=== PATIENT | female | born 1980 | race Two or more races ===

== ENCOUNTER 2022-06-18 07:42 | Inpatient (IN) ==
[2022-06-18] MEDS ORDERED: OXYTOCIN 30 UNITS/500 ML BAG IV PRN ×2 (08:55→16:27)
[2022-06-18] MEDS ORDERED: INSULIN REGULAR 250 UNITS in SODIUM CHLORIDE 0.9% 247.5 ML IV PRN (08:55)
[2022-06-18] MEDS ORDERED: DEXTROSE 5% 1,000 ML IV PRN (08:55)
[2022-06-18] MEDS ORDERED: LIDOCAINE 1% LOCAL 20 ML VIAL INFIL PRN (08:55)
[2022-06-18] MEDS ORDERED: DEXTROSE 50% 50 ML SYRINGE IV PRN (08:55)
[2022-06-18] MEDS ORDERED: SODIUM CHLORIDE 0.9% 1000ML 1,000 ML IV PRN (08:55)
--- NOTE | 2022-06-18 09:04 | History & Physical Report ---
Date of Service June 18, 2022 Assessment & Plan (1) Elective induction of labor planned: Plan: 41 y/o [id number] female at 39+ here for IOL. GBS neg, RI, Rh pos. c/b 1. AMA 2. GDM on insulin 3. Low lying placenta --> resolved FHT: Cat I Admission and Anticipated Discharge Date Admission Date: June 18, 2022 History of Present Illness Chief Complaint: IOL Primary Care Provider: Vilma Hull PA-C 41 y/o [id number] female at 39+ here for IOL. GBS neg, RI, Rh pos. c/b 1. AMA 2. GDM on insulin 3. Low lying placenta --> resolved No STD Hx Last pap 2018 Comment from clinic note 06/17/2022: Reviewed concerns of Jehovah Witness with regards to refusal of blood products. They do not have a living will or legal document stating to this, however she is firm that she would refuse direct blood products, RBC, platelets, FFP. Likely would accept Albumin. Discussed that the risk of transfusion is not zero with induction and that if a C/S is required that more blood loss would be expected. The refusal of blood p roducts could mean the loss of life, although rare, it is sometimes required in life saving situations Note at this stage she verbally is stating that she really does not want blood products I reviewed with her nurse manager strategic development in labor and delivery and with Dr. Kinsey on-call for cervical Caceres tonight the will go over the formal paperwork of refusal of products and potential implications Allergies Allergy/AdvReac Type Severity Reaction Status Date / Time No Known Allergies Allergy Verified 06/17/22 20:03 Home Medications Medication Instructions Recorded Confirmed Type prenat.vits,camilla,[id number] 1 tab PO DAILY 11/22/21 06/17/22 History insulin syringe-needle U-100 0.5 #100 ea 02/01/22 06/17/22 Rx mL 30 gauge x 1/2" (BD Insulin Syringe Ultra-Fine) insulin NPH isoph U-100 human 100 50 unit (0.5 mL) subcut QPM #20 mL 06/04/22 06/17/22 Rx unit/mL subcutaneous suspension (Novolin N NPH U-100 Insulin isophane) Patient History Surgical History History of laparoscopy S/P dilation and curettage Family History (Updated 11/22/21 @ 17:20 by Carmen Rudd) Mother Diabetes Heart disease Father Diabetes Heart disease Brother Testicular cancer Social History Smoking Status: Never smoker Second Hand Exposure: No; Do You Dip or Chew Tobacco: No; Tobacco Cessation Education Requested by Patient: No Hx Alcohol Use: No Hx Substance Use: No Preferred Language: Uzbek Communication Ability: Effective Robot Technician Required: No Beliefs That Will Affect Care: Denominational marital status: marital status details: Quinn (55) [phone] Current Living Situation: Spouse Current Living Situation Comment: lives with spouse and mother in law, 2 dogs. current occupational status: unemployed Other Information That Helps Us Care for You: No Feels Safe at Home: Yes Safety Concerns: Feels Safe At This Time Physical Exam Constitutional: WD/WN, vitals as above Respiratory: no increased work of breathing Cardiovascular: clinically well perfused Psychiatric: A+Ox3, euthymic affect Genitourinary: OB Exam Monitor Tracing: + external FHT monitor used and + category I (baseline 135-140s, no decels, moderate variability) gravid abdomen Results & Data ([facility]) Vital Signs (Past 12 Hours) Vital Signs Temp Pulse Resp BP 06/18/22 08:44 18 06/18/22 08:44 37.0 C 18 06/18/22 08:31 97 H 118/79 Resident Activity Tracking Resident Involvement: Resident Care Provided Care Provided: OB Delivery
[2022-06-18 09:22] LABS: Hematocrit (blood only) 33.2 % (34.1-44.9); Hemoglobin 11.2 g/dl (12.0-16.0); Mean Corpuscular Hemoglobin 30.9 pg (25.0-34.0); Mean Corpuscular Hgb Conc 33.7 g/dL (32.0-36.0); Mean Corpuscular Volume 91.7 fL (80.0-100.0); Mean Platelet Volume 10.3 fL (9.4-12.3); Platelet Count 207 K/uL (130-400); RDW Coefficient of Variation 13.2 % (11.5-14.5); Red Blood Count 3.62 M/uL (3.93-5.22); White Blood Count 13.13 K/ul (4.8-10.8)
--- NOTE | 2022-06-18 09:55 | Obstetrical Progress Note ---
Date of Service June 18, 2022 Assessment & Plan Admission and Anticipated Discharge Date Admission Date: June 18, 2022 Subjective Continue our conversation from the office where we spent considerable time discussing her situation the patient was given the blood transfusion consent last night by Dr. Kinsey she did look at over carefully she has signed that she refuses blood products. This includes platelets red blood cells fresh frozen plasma and cryoprecipitate. I specifically asked the patient regarding albumin the patient says albumin would be okay I explained that for some people who are Jehovah's Witnesses that albumin is declined she understands this and what excepted she also would except other synthetic volume expanders I discussed carefully along with her nurse at the bedside but the potential risks of refusing blood transfusion and blood products are including potential while this is unlikely blood loss does occur at both vaginal delivery and if that was required we discussed the rates of blood transfusion and how blood is carefully screened for infectious diseases. I signed the consent along with the patient I told her we would respect her autonomy but that I had concerns about the potential harm to her if blood was truly needed and refused. Her partner was part of these conversations as well. Specifically that with gestational diabetes advanced maternal age high presenting part with an unfavorable cervix does somewhat increase the risk of section which has a higher blood loss I still think the prudent option would be to try to induce labor all of these discussions are shared with the patient. The cervix is checked the Caceres is still in place the cervix is still at most 1 cm we will await for Caceres to ripen further and then start Pitocin estimated weight 7 to 8 pounds COVID status negative records reviewed Results & Data ([facility]) Vital Signs (Past 12 Hours) Vital Signs Temp Pulse Resp BP 06/18/22 08:44 18 06/18/22 08:44 98.6 F 18 06/18/22 08:31 97 H 118/79 PG Care Time/CCT Total # of Minutes Spent Total Time Spent with Patient: Total time spent is greater than 50% in coordination of care (as documented) at patient's floor/unit and/or counseling patient: Coding Level of Care Code None
--- NOTE | 2022-06-18 10:52 | Obstetrical Progress Note ---
Date of Service June 18, 2022 Assessment & Plan Admission and Anticipated Discharge Date Admission Date: June 18, 2022 Subjective Due to high-volume census of labor and delivery I have not started Pitocin yet we will do this when we have available nursing and remedies for this. Results & Data ([facility]) Vital Signs (Past 12 Hours) Vital Signs Temp Pulse Resp BP 06/18/22 08:44 18 06/18/22 08:44 98.6 F 18 06/18/22 08:31 97 H 118/79 PG Care Time/CCT Total # of Minutes Spent Total Time Spent with Patient: Total time spent is greater than 50% in coordination of care (as documented) at patient's floor/unit and/or counseling patient: Coding Level of Care Code None
--- NOTE | 2022-06-18 14:45 | Obstetrical Progress Note ---
Date of Service June 18, 2022 Assessment & Plan Admission and Anticipated Discharge Date Admission Date: June 18, 2022 Subjective Due to exceptionally high service volume and dizziness and acuity I have not been able to start her Pitocin yet the patient is very hungry I will let her eat and then we will start Pitocin soon after that. Results & Data ([facility]) Vital Signs (Past 12 Hours) Vital Signs Temp Pulse Resp BP 06/18/22 12:47 98.8 F 91 H 17 139/82 06/18/22 08:44 18 06/18/22 08:44 98.6 F 18 06/18/22 08:31 97 H 118/79 PG Care Time/CCT Total # of Minutes Spent Total Time Spent with Patient: Total time spent is greater than 50% in coordination of care (as documented) at patient's floor/unit and/or counseling patient: Coding Level of Care Code None
[2022-06-18] MEDS: LACTATED RINGER'S 1,000 ML IV PRN ×2 (16:39→22:57)
[2022-06-18] MEDS ORDERED: SODIUM CHLORIDE 0.9% INJ 10 ML VIAL ONE (22:28)
[2022-06-18] MEDS ORDERED: ePHEDrine sulfate 50 MG/ML AMP ONE (22:28)
[2022-06-18] MEDS ORDERED: fentaNYL citrate 100 MCG/2 ML VIAL ONE (22:28)
[2022-06-18] MEDS ORDERED: BUPIVACAINE 0.25% 30 ML VIAL ONE (22:29)
[2022-06-18] MEDS ORDERED: fentaNYL 2MCG/ML ROPIVACAINE 1.25MG/ML 100 ML BAG EPI ONE (22:29)
[2022-06-18] MEDS ORDERED: LIDOCAINE 2%/EPINEPHRINE 1:200,000 20 ML SDV ONE (22:29)
--- NOTE | 2022-06-18 22:37 | Anesthesiology Consultation ---
Date of Service June 18, 2022 Assessment & Plan (1) Encounter for pre-operative examination: Chart Review Chart Review: Acceptable Risk for Labor Epidural Consults Requested none ASA ASA2 Proposed Anesthesia Anesthesia Type: Labor Epidural Risk / Benefits Reviewed With: PT / POA / Parent / Guardian, Accepts Plan and Informed Consent Obtained History Height/Weight Height: 5 ft 3 in Weight: 84.368 kg Allergies Allergy/AdvReac Type Severity Reaction Status Date / Time No Known Allergies Allergy Verified 06/17/22 20:03 Medications Home Medications Medication Instructions Recorded Confirmed Last Taken prenat.vits,camilla,[id number] 1 tab PO DAILY 11/22/21 06/17/22 06/17/22 08:00 insulin syringe-needle U-100 0.5 #100 ea 02/01/22 06/17/22 Unknown mL 30 gauge x 1/2" (BD Insulin Syringe Ultra-Fine) insulin NPH isoph U-100 human 100 50 unit (0.5 mL) subcut QPM #20 mL 06/04/22 06/17/22 06/16/22 20:00 unit/mL subcutaneous suspension (Novolin N NPH U-100 Insulin isophane) Active Medications Generic Name Dose Route Start Last Admin Trade Name Freq PRN Reason Stop Dose Admin Lactated Ringer's 1,000 mls @ 125 mls/hr 06/18/22 08:55 06/18/22 19:01 Lr IV 06/20/22 08:54 125 mls/hr .Q8H PRN Infusion L&D Protocol Protocol Oxytocin 30 units in 500 mls @ 10 mls/hr 06/18/22 16:27 06/18/22 21:00 Pitocin IV 06/20/22 16:26 0.6 units/hr .Q24H PRN 10 mls/hr Labor Induction/Augmentation Titration Protocol 0.6 UNITS/HR Exercise / Class Metabolic Activity II 4-5 Yardwork/Stairs/Walk up hill Past Family History Family History Mother Diabetes Heart disease Father Diabetes Heart disease Brother Testicular cancer Past Surgical History Surgical History History of laparoscopy S/P dilation and curettage Past Anesthesia History No Hx of Anesthesia Complications and No Family Hx of Anesthesia Complications History of PONV No Hx of PONV and No Hx of Motion Sickness Social History Smoking Status: Never smoker Do You Dip or Chew Tobacco: No Hx Alcohol Use: No Hx Substance Use: No substance use type: does not use Physical Exam Vital Signs Last Vital Signs Temp 98.2 F 06/18/22 19:13 Pulse 89 06/18/22 22:00 Resp 18 06/18/22 19:13 BP 119/74 06/18/22 22:00 ENMT Mouth: no dentition abnormality Thyromental Distance: > or= 3.5 Finger Breadths Mallampati Class: II Neck normal visual inspection Respiratory normal respiratory effort Auscultation: lungs clear to auscultation bilaterally Cardiovascular Rate/Rhythm: regular rate and regular rhythm Testing Laboratory Results 06/18/22 08:59 06/18/22 06/18/22 06/18/22 21:59 19:42 17:48 POC Glucose 102 H 92 107 H 06/18/22 06/18/22 15:26 12:46 POC Glucose 103 H 79
[2022-06-18] MEDS ORDERED: fentaNYL 2MCG/ML ROPIVACAINE 1.25MG/ML 100 ML BAG EPI PRN (22:58)
[2022-06-18] MEDS ORDERED: ePHEDrine sulfate 50 MG/ML AMP IV PRN (22:58)
[2022-06-18] MEDS ORDERED: NALBUPHINE HCL INJ 10 MG/ML AMP IV PRN (22:58)
[2022-06-18] MEDS ORDERED: NALOXONE HCL 1 MG in SODIUM CHLORIDE 0.9% 1000ML 1,000 ML IV PRN (22:58)
[2022-06-18] MEDS ORDERED: diphenhydrAMINE 50 MG/ML VIAL IV PRN (22:58)
[2022-06-18] MEDS ORDERED: ONDANSETRON INJ 2 MG/ML 2 ML VIAL IV PRN (22:58)
[2022-06-18] MEDS ORDERED: NALOXONE HCL 0.4 MG/1 ML VIAL/CARP IV PRN (22:58)
[2022-06-19] MEDS: LACTATED RINGER'S 1,000 ML IV PRN ×2 (03:36→12:20)
--- NOTE | 2022-06-19 06:52 | Labor Progress Brief Note ---
Date of Service June 19, 2022 Update we were unable to fully start Pitocin until last evening due to busyness and high census on labor and delivery her cervical Caceres did fall out. She was assessed and found to be 3 cm station is high risk for tract the heart rate is category 1 and has remained category 1 at all times. Around midnight there was an increase in bleeding she was assessed and checked at that time category tracing was 1 the bleeding resolved I was unsure whether this was from cervical change she was checked her and she was 3-4 there is no significant bleeding noted at this stage. There was no evidence of abruption in the heart rate tracing or contraction pattern patient felt well with no pain should be noted she does have an epidural. Pitocin was withheld to ensure no further bleeding once this was fully resolved Pitocin was restarted contraction pattern is spaced at approximately 6:30 AM I reassessed her she is 3-4 attempted artificial rupture of membranes there is no big gush of fluid but no significant increase in bleeding. Continue Pitocin induction with artificial rupture membranes expect further cervical change she is not in fully active labor yet and with a category 1 tracing we will continue to actively induce Assessment & Plan Admission and Anticipated Discharge Date Admission Date: June 18, 2022 Results & Data ([facility]) Vital Signs (Past 12 Hours) Vital Signs Temp Pulse Resp BP Pulse Ox 06/18/22 19:13 98.2 F 18 06/19/22 06:39 112 H 100 06/19/22 06:36 100 H 106/66 06/19/22 06:34 101 H 98 06/19/22 06:29 90 97 06/19/22 06:24 99 H 99 06/19/22 06:21 90 119/71 06/19/22 06:19 93 H 100 06/19/22 06:14 80 98 06/19/22 06:09 89 98 06/19/22 06:07 96 H 117/65 06/19/22 06:04 95 H 98 06/19/22 05:59 96 H 100 06/19/22 05:54 115 H 100 06/19/22 05:51 106 H 113/58 L 06/19/22 05:49 115 H 100 06/19/22 05:44 106 H 100 06/19/22 05:39 110 H 100 06/19/22 05:36 105 H 106/57 L 06/19/22 05:34 111 H 100 06/19/22 05:29 111 H 100 06/19/22 05:24 104 H 99 06/19/22 05:21 101 H 100/68 06/19/22 05:19 101 H 100 06/19/22 05:14 100 H 100 06/19/22 05:09 104 H 99 06/19/22 05:06 96 H 100/62 06/19/22 05:04 101 H 100 06/19/22 04:59 103 H 100 06/19/22 04:54 109 H 99 06/19/22 04:52 85 96/53 L 06/19/22 04:49 94 H 99 06/19/22 04:44 91 H 98 06/19/22 04:39 92 H 98 06/19/22 04:37 97 H 106/57 L 06/19/22 04:34 86 98 06/19/22 04:29 84 98 06/19/22 04:24 89 99 06/19/22 04:21 95 H 94/53 L 06/19/22 04:19 83 97 06/19/22 04:14 90 98 06/19/22 04:09 93 H 98 06/19/22 04:06 95 H 100/51 L 06/19/22 04:04 92 H 98 06/19/22 03:59 95 H 99 06/19/22 03:54 94 H 99 06/19/22 03:49 98 06/19/22 03:49 96 H 06/19/22 03:49 84 105/54 L 06/19/22 03:44 94 H 100 06/19/22 03:39 87 117/69 100 06/19/22 03:34 84 100 06/19/22 03:29 98 H 97 06/19/22 03:28 106 H 110/59 L 06/19/22 03:24 83 98 06/19/22 03:19 84 98 06/19/22 03:18 92 H 105/58 L 06/19/22 03:14 93 H 98 06/19/22 03:09 97 H 99 06/19/22 03:08 84 98/55 L 06/19/22 03:04 109 H 100 06/19/22 02:59 92 H 98 06/19/22 02:58 96 H 100/56 L 06/19/22 02:54 81 99 06/19/22 02:49 99 06/19/22 02:49 106 H 06/19/22 02:49 90 105/67 06/19/22 02:44 90 99 06/19/22 02:39 86 98 06/19/22 02:38 81 96/55 L 06/19/22 02:34 88 98 06/19/22 02:29 97 H 100 06/19/22 02:28 100 H 99/56 L 06/19/22 02:24 93 H 99 06/19/22 02:19 98 06/19/22 02:19 84 06/19/22 02:19 88 104/62 06/19/22 02:14 79 98 06/19/22 02:09 95 H 100 06/19/22 02:08 96 H 102/68 06/19/22 02:04 81 100 06/19/22 01:59 100 06/19/22 01:59 85 06/19/22 01:59 92 H 108/72 06/19/22 01:54 76 99 06/19/22 01:49 99 06/19/22 01:49 90 06/19/22 01:49 78 104/64 06/19/22 01:44 88 99 06/19/22 01:39 100 H 100 06/19/22 01:38 92 H 96/60 L 06/19/22 01:34 82 98 06/19/22 01:29 77 98 06/19/22 01:30 81 102/62 06/19/22 01:24 82 98 06/19/22 01:19 86 98 06/19/22 01:18 79 94/55 L 06/19/22 01:14 91 H 99 06/19/22 01:09 96 H 100 06/19/22 01:08 83 109/66 06/19/22 01:04 90 99 06/19/22 00:59 92 H 98 06/19/22 00:58 98.4 F 85 18 105/64 06/19/22 00:54 82 100 06/19/22 00:49 86 98 06/19/22 00:44 81 98 06/19/22 00:39 94 H 100 06/19/22 00:40 92 H 98/61 L 06/19/22 00:34 91 H 99 06/19/22 00:29 92 H 97 06/19/22 00:26 91 H 104/65 06/19/22 00:24 104 H 99 06/19/22 00:19 97 H 98 06/19/22 00:14 85 97 06/19/22 00:12 111 H 107/63 06/19/22 00:09 66 98 06/19/22 00:04 88 97 06/19/22 00:02 74 87 L 06/18/22 23:59 77 99 06/18/22 23:56 81 155/99 H 06/18/22 23:54 48 L 100 06/18/22 23:53 65 87 L 06/18/22 23:49 96 H 100 06/18/22 23:44 99 H 99 06/18/22 23:40 86 119/72 06/18/22 23:39 88 99 06/18/22 23:34 107 H 100 06/18/22 23:29 92 H 99 06/18/22 23:24 101 H 99 06/18/22 23:25 100 H 115/67 06/18/22 23:19 104 H 99 06/18/22 23:05 18 06/18/22 23:05 18 06/18/22 23:10 20 06/18/22 23:10 20 06/18/22 23:14 100 H 100 06/18/22 23:09 106 H 110/63 100 06/18/22 23:06 100 H 109/62 06/18/22 23:04 104 H 99 06/18/22 23:03 95 H 117/64 06/18/22 22:59 100 H 100 06/18/22 23:00 100 H 18 121/67 06/18/22 22:58 101 H 122/72 06/18/22 22:56 100 H 123/71 06/18/22 22:54 115 H 100 06/18/22 22:53 99 H 115/69 06/18/22 22:49 101 H 100 06/18/22 22:44 110 H 100 06/18/22 22:39 110 H 100 06/18/22 22:34 107 H 94 06/18/22 22:00 89 119/74 06/18/22 19:05 98.2 F 91 H 18 130/75 Coding Level of Care Code None
--- NOTE | 2022-06-19 09:39 | Labor Progress Brief Note ---
Date of Service June 19, 2022 Subjective some cramping with epidural, better with button Assessment & Plan (1) Insulin controlled gestational diabetes mellitus (GDM) during : (2) Elective induction of labor planned: Plan 41 yo at 39 2/7 wga presented for IOL yesterday for A2GDM, ama >40 VSS Fetus cat 1 Labor - pit restarted at 6am this AM and AROM at that time. On my exam, I think slight progress from documented exam earlier this AM. Discussed will need to continue increasing pit until 10cm and pushing, discussed potential time it may take as this is first baby, age, GDM. Pt aware and desires to continue at this time GBS neg epidural in place Mandaen - pt is accepting of plasma derived fractions (albumin, immune globulins) an dclotting factors but not whole blood or its components and would prefer over transfusion of blood or whole blood products Admission and Anticipated Discharge Date Admission Date: June 18, 2022 Physical Exam Genitourinary: Manual OB Exam: + cervical dilation (3-4), + cervical e ffacement 70% and + station -2 OB Exam Monitor Tracing: + external FHT monitor used, + external uterine monitor used (q3-4) and + category I (140/mod/+accel/-decel) Results & Data ([facility]) Vital Signs (Past 12 Hours) Vital Signs Temp Pulse Resp BP Pulse Ox 06/19/22 09:34 90 100 06/19/22 09:29 92 H 100 06/19/22 09:24 108 H 100 06/19/22 09:21 83 120/69 06/19/22 09:19 102 H 100 06/19/22 09:14 94 H 99 06/19/22 09:09 80 100 06/19/22 09:07 82 117/67 06/19/22 09:04 86 99 06/19/22 08:59 87 100 06/19/22 08:54 105 H 100 06/19/22 08:51 111 H 110/70 06/19/22 08:49 93 H 100 06/19/22 08:44 102 H 100 06/19/22 08:39 90 100 06/19/22 08:36 106 H 119/72 06/19/22 08:34 98 H 100 06/19/22 08:29 103 H 100 06/19/22 08:24 103 H 99 06/19/22 08:21 93 H 117/63 06/19/22 08:19 116 H 99 06/19/22 08:14 96 H 99 06/19/22 08:09 98 H 100 06/19/22 08:07 98.6 F 85 17 105/59 L 06/19/22 08:04 104 H 100 06/19/22 07:59 98 H 100 06/19/22 07:54 97 H 100 06/19/22 07:51 96 H 117/72 06/19/22 07:49 97 H 100 06/19/22 07:44 99 H 100 06/19/22 07:39 98 H 100 06/19/22 07:37 95 H 128/78 06/19/22 07:34 96 H 100 06/19/22 07:29 100 H 99 06/19/22 07:24 93 H 99 06/19/22 07:21 89 124/77 06/19/22 07:19 89 100 06/19/22 07:14 94 H 100 06/19/22 07:09 87 100 06/19/22 07:06 89 125/73 06/19/22 07:04 101 H 99 06/19/22 06:59 101 H 100 06/19/22 06:54 97 H 100 06/19/22 06:52 98.4 F 88 18 127/75 06/19/22 06:49 87 100 06/19/22 06:44 94 H 100 06/19/22 06:39 112 H 100 06/19/22 06:36 100 H 106/66 06/19/22 06:34 101 H 98 06/19/22 06:29 90 97 06/19/22 06:24 99 H 99 06/19/22 06:21 90 119/71 06/19/22 06:19 93 H 100 06/19/22 06:14 80 98 06/19/22 06:09 89 98 06/19/22 06:07 96 H 117/65 06/19/22 06:04 95 H 98 06/19/22 05:59 96 H 100 06/19/22 05:54 115 H 100 06/19/22 05:51 106 H 113/58 L 06/19/22 05:49 115 H 100 06/19/22 05:44 106 H 100 06/19/22 05:39 110 H 100 06/19/22 05:36 105 H 106/57 L 06/19/22 05:34 111 H 100 06/19/22 05:29 111 H 100 06/19/22 05:24 104 H 99 06/19/22 05:21 101 H 100/68 06/19/22 05:19 101 H 100 06/19/22 05:14 100 H 100 06/19/22 05:09 104 H 99 06/19/22 05:06 96 H 100/62 06/19/22 05:04 101 H 100 06/19/22 04:59 103 H 100 06/19/22 04:54 109 H 99 06/19/22 04:52 85 96/53 L 06/19/22 04:49 94 H 99 06/19/22 04:44 91 H 98 06/19/22 04:39 92 H 98 06/19/22 04:37 97 H 106/57 L 06/19/22 04:34 86 98 06/19/22 04:29 84 98 06/19/22 04:24 89 99 06/19/22 04:21 95 H 94/53 L 06/19/22 04:19 83 97 06/19/22 04:14 90 98 06/19/22 04:09 93 H 98 06/19/22 04:06 95 H 100/51 L 06/19/22 04:04 92 H 98 06/19/22 03:59 95 H 99 06/19/22 03:54 94 H 99 06/19/22 03:49 98 06/19/22 03:49 96 H 06/19/22 03:49 84 105/54 L 06/19/22 03:44 94 H 100 06/19/22 03:39 87 117/69 100 06/19/22 03:34 84 100 06/19/22 03:29 98 H 97 06/19/22 03:28 106 H 110/59 L 06/19/22 03:24 83 98 06/19/22 03:19 84 98 06/19/22 03:18 92 H 105/58 L 06/19/22 03:14 93 H 98 06/19/22 03:09 97 H 99 06/19/22 03:08 84 98/55 L 06/19/22 03:04 109 H 100 06/19/22 02:59 92 H 98 06/19/22 02:58 96 H 100/56 L 06/19/22 02:54 81 99 06/19/22 02:49 99 06/19/22 02:49 106 H 06/19/22 02:49 90 105/67 06/19/22 02:44 90 99 06/19/22 02:39 86 98 06/19/22 02:38 81 96/55 L 06/19/22 02:34 88 98 06/19/22 02:29 97 H 100 06/19/22 02:28 100 H 99/56 L 06/19/22 02:24 93 H 99 06/19/22 02:19 98 06/19/22 02:19 84 06/19/22 02:19 88 104/62 06/19/22 02:14 79 98 06/19/22 02:09 95 H 100 06/19/22 02:08 96 H 102/68 06/19/22 02:04 81 100 06/19/22 01:59 100 06/19/22 01:59 85 06/19/22 01:59 92 H 108/72 06/19/22 01:54 76 99 06/19/22 01:49 99 06/19/22 01:49 90 06/19/22 01:49 78 104/64 06/19/22 01:44 88 99 06/19/22 01:39 100 H 100 06/19/22 01:38 92 H 96/60 L 06/19/22 01:34 82 98 06/19/22 01:29 77 98 06/19/22 01:30 81 102/62 06/19/22 01:24 82 98 06/19/22 01:19 86 98 06/19/22 01:18 79 94/55 L 06/19/22 01:14 91 H 99 06/19/22 01:09 96 H 100 06/19/22 01:08 83 109/66 06/19/22 01:04 90 99 06/19/22 00:59 92 H 98 06/19/22 00:58 98.4 F 85 18 105/64 06/19/22 00:54 82 100 06/19/22 00:49 86 98 06/19/22 00:44 81 98 06/19/22 00:39 94 H 100 06/19/22 00:40 92 H 98/61 L 06/19/22 00:34 91 H 99 06/19/22 00:29 92 H 97 06/19/22 00:26 91 H 104/65 06/19/22 00:24 104 H 99 06/19/22 00:19 97 H 98 06/19/22 00:14 85 97 06/19/22 00:12 111 H 107/63 06/19/22 00:09 66 98 06/19/22 00:04 88 97 06/19/22 00:02 74 87 L 06/18/22 23:59 77 99 06/18/22 23:56 81 155/99 H 06/18/22 23:54 48 L 100 06/18/22 23:53 65 87 L 06/18/22 23:49 96 H 100 06/18/22 23:44 99 H 99 06/18/22 23:40 86 119/72 06/18/22 23:39 88 99 06/18/22 23:34 107 H 100 06/18/22 23:29 92 H 99 06/18/22 23:24 101 H 99 06/18/22 23:25 100 H 115/67 06/18/22 23:19 104 H 99 06/18/22 23:05 18 06/18/22 23:05 18 06/18/22 23:10 20 06/18/22 23:10 20 06/18/22 23:14 100 H 100 06/18/22 23:09 106 H 110/63 100 06/18/22 23:06 100 H 109/62 06/18/22 23:04 104 H 99 06/18/22 23:03 95 H 117/64 06/18/22 22:59 100 H 100 06/18/22 23:00 100 H 18 121/67 06/18/22 22:58 101 H 122/72 06/18/22 22:56 100 H 123/71 06/18/22 22:54 115 H 100 06/18/22 22:53 99 H 115/69 06/18/22 22:49 101 H 100 06/18/22 22:44 110 H 100 06/18/22 22:39 110 H 100 06/18/22 22:34 107 H 94 06/18/22 22:00 89 119/74 Coding Level of Care Code None Diagnoses Insulin controlled gestational diabetes mellitus (GDM) during O24.414 Elective induction of labor planned
[2022-06-19] MEDS ORDERED: NURSING L&D Epidural Breakthrough Pain Update ONE (10:38)
[2022-06-19] MEDS ORDERED: fentaNYL citrate 100 MCG/2 ML VIAL ONE (11:19)
[2022-06-19] MEDS ORDERED: BUPIVACAINE 0.25% 30 ML VIAL ONE (11:20)
--- NOTE | 2022-06-19 11:43 | Labor Progress Brief Note ---
Date of Service June 19, 2022 Subjective comfortable after redose Assessment & Plan (1) Insulin controlled gestational diabetes mellitus (GDM) during : (2) Elective induction of labor planned: Plan 41 yo at 39 2/7 wga presented for IOL yesterday for A2GDM, ama >40 VSS Fetus cat 1 Labor - good progres from last exam, pt more comfortable after redose. Will continue peanut balling and recheck in an hour GBS neg epidural in place Gnosticism - pt is accepting of plasma derived fractions (albumin, immune globulins) an dclotting factors but not whole blood or its components and would prefer over transfusion of blood or whole blood products Admission and Anticipated Discharge Date Admission Date: June 18, 2022 Physical Exam Genitourinary: Manual OB Exam: + cervical dilation (9.5), + cervical effacement 90% and + station + 1 OB Exam Monitor Tracing: + external FHT monitor used, + external uterine monitor used (q3-4) and + category I (120/mod/+accel/+ early decels) Results & Data ([facility]) Vital Signs (Past 12 Hours) Vital Signs Temp Pulse Resp BP Pulse Ox 06/19/22 11:35 130 H 100 06/19/22 11:33 116 H 126/84 06/19/22 11:31 114 H 130/70 06/19/22 11:30 117 H 100 06/19/22 11:29 123 H 130/85 06/19/22 11:27 113 H 132/86 06/19/22 11:25 118 H 136/88 100 06/19/22 11:23 113 H 131/88 06/19/22 11:21 120 H 128/87 06/19/22 11:20 120 H 100 06/19/22 11:15 132 H 100 06/19/22 11:10 125 H 100 06/19/22 11:06 114 H 117/66 06/19/22 11:05 112 H 100 06/19/22 11:00 121 H 100 06/19/22 10:55 87 100 06/19/22 10:51 100 H 113/61 06/19/22 10:50 90 100 06/19/22 10:45 88 100 06/19/22 10:40 104 H 100 06/19/22 10:37 88 120/58 L 06/19/22 10:35 106 H 100 06/19/22 10:30 90 99 06/19/22 10:25 90 100 06/19/22 10:21 91 H 123/58 L 06/19/22 10:20 91 H 100 06/19/22 10:15 90 100 06/19/22 10:10 96 H 100 06/19/22 10:07 105 H 122/57 L 06/19/22 10:05 102 H 100 06/19/22 09:59 105 H 100 06/19/22 10:00 100 H 84 L 06/19/22 09:54 110 H 100 06/19/22 09:51 90 134/73 06/19/22 09:49 105 H 100 06/19/22 09:50 103 H 88 L 06/19/22 09:44 93 H 100 06/19/22 09:39 104 H 100 06/19/22 09:37 95 H 131/74 06/19/22 09:34 90 100 06/19/22 09:29 92 H 100 06/19/22 09:24 108 H 100 06/19/22 09:21 83 120/69 06/19/22 09:19 102 H 100 06/19/22 09:14 94 H 99 06/19/22 09:09 80 100 06/19/22 09:07 98.6 F 82 16 117/67 06/19/22 09:04 86 99 06/19/22 08:59 87 100 06/19/22 08:54 105 H 100 06/19/22 08:51 111 H 110/70 06/19/22 08:49 93 H 100 06/19/22 08:44 102 H 100 06/19/22 08:39 90 100 06/19/22 08:36 106 H 119/72 06/19/22 08:34 98 H 100 06/19/22 08:29 103 H 100 06/19/22 08:24 103 H 99 06/19/22 08:21 93 H 117/63 06/19/22 08:19 116 H 99 06/19/22 08:14 96 H 99 06/19/22 08:09 98 H 100 06/19/22 08:07 98.6 F 85 17 105/59 L 06/19/22 08:04 104 H 100 06/19/22 07:59 98 H 100 06/19/22 07:54 97 H 100 06/19/22 07:51 96 H 117/72 06/19/22 07:49 97 H 100 06/19/22 07:44 99 H 100 06/19/22 07:39 98 H 100 06/19/22 07:37 95 H 128/78 06/19/22 07:34 96 H 100 06/19/22 07:29 100 H 99 06/19/22 07:24 93 H 99 06/19/22 07:21 89 124/77 06/19/22 07:19 89 100 06/19/22 07:14 94 H 100 06/19/22 07:09 87 100 06/19/22 07:06 89 125/73 06/19/22 07:04 101 H 99 06/19/22 06:59 101 H 100 06/19/22 06:54 97 H 100 06/19/22 06:52 98.4 F 88 18 127/75 06/19/22 06:49 87 100 06/19/22 06:44 94 H 100 06/19/22 06:39 112 H 100 06/19/22 06:36 100 H 106/66 06/19/22 06:34 101 H 98 06/19/22 06:29 90 97 06/19/22 06:24 99 H 99 06/19/22 06:21 90 119/71 06/19/22 06:19 93 H 100 06/19/22 06:14 80 98 06/19/22 06:09 89 98 06/19/22 06:07 96 H 117/65 06/19/22 06:04 95 H 98 06/19/22 05:59 96 H 100 06/19/22 05:54 115 H 100 06/19/22 05:51 106 H 113/58 L 06/19/22 05:49 115 H 100 06/19/22 05:44 106 H 100 06/19/22 05:39 110 H 100 06/19/22 05:36 105 H 106/57 L 06/19/22 05:34 111 H 100 06/19/22 05:29 111 H 100 06/19/22 05:24 104 H 99 06/19/22 05:21 101 H 100/68 06/19/22 05:19 101 H 100 06/19/22 05:14 100 H 100 06/19/22 05:09 104 H 99 06/19/22 05:06 96 H 100/62 06/19/22 05:04 101 H 100 06/19/22 04:59 103 H 100 06/19/22 04:54 109 H 99 06/19/22 04:52 85 96/53 L 06/19/22 04:49 94 H 99 06/19/22 04:44 91 H 98 06/19/22 04:39 92 H 98 06/19/22 04:37 97 H 106/57 L 06/19/22 04:34 86 98 06/19/22 04:29 84 98 06/19/22 04:24 89 99 06/19/22 04:21 95 H 94/53 L 06/19/22 04:19 83 97 06/19/22 04:14 90 98 06/19/22 04:09 93 H 98 06/19/22 04:06 95 H 100/51 L 06/19/22 04:04 92 H 98 06/19/22 03:59 95 H 99 06/19/22 03:54 94 H 99 06/19/22 03:49 98 06/19/22 03:49 96 H 06/19/22 03:49 84 105/54 L 06/19/22 03:44 94 H 100 06/19/22 03:39 87 117/69 100 06/19/22 03:34 84 100 06/19/22 03:29 98 H 97 06/19/22 03:28 106 H 110/59 L 06/19/22 03:24 83 98 06/19/22 03:19 84 98 06/19/22 03:18 92 H 105/58 L 06/19/22 03:14 93 H 98 06/19/22 03:09 97 H 99 06/19/22 03:08 84 98/55 L 06/19/22 03:04 109 H 100 06/19/22 02:59 92 H 98 06/19/22 02:58 96 H 100/56 L 06/19/22 02:54 81 99 06/19/22 02:49 99 06/19/22 02:49 106 H 06/19/22 02:49 90 105/67 06/19/22 02:44 90 99 06/19/22 02:39 86 98 06/19/22 02:38 81 96/55 L 06/19/22 02:34 88 98 06/19/22 02:29 97 H 100 06/19/22 02:28 100 H 99/56 L 06/19/22 02:24 93 H 99 06/19/22 02:19 98 06/19/22 02:19 84 06/19/22 02:19 88 104/62 06/19/22 02:14 79 98 06/19/22 02:09 95 H 100 06/19/22 02:08 96 H 102/68 06/19/22 02:04 81 100 06/19/22 01:59 100 06/19/22 01:59 85 06/19/22 01:59 92 H 108/72 06/19/22 01:54 76 99 06/19/22 01:49 99 06/19/22 01:49 90 06/19/22 01:49 78 104/64 06/19/22 01:44 88 99 06/19/22 01:39 100 H 100 06/19/22 01:38 92 H 96/60 L 06/19/22 01:34 82 98 06/19/22 01:29 77 98 06/19/22 01:30 81 102/62 06/19/22 01:24 82 98 06/19/22 01:19 86 98 06/19/22 01:18 79 94/55 L 06/19/22 01:14 91 H 99 06/19/22 01:09 96 H 100 06/19/22 01:08 83 109/66 06/19/22 01:04 90 99 06/19/22 00:59 92 H 98 06/19/22 00:58 98.4 F 85 18 105/64 06/19/22 00:54 82 100 06/19/22 00:49 86 98 06/19/22 00:44 81 98 06/19/22 00:39 94 H 100 06/19/22 00:40 92 H 98/61 L 06/19/22 00:34 91 H 99 06/19/22 00:29 92 H 97 06/19/22 00:26 91 H 104/65 06/19/22 00:24 104 H 99 06/19/22 00:19 97 H 98 06/19/22 00:14 85 97 01/18/23 00:12 111 H 107/63 06/19/22 00:09 66 98 06/19/22 00:04 88 97 06/19/22 00:02 74 87 L 06/18/22 23:59 77 99 06/18/22 23:56 81 155/99 H 06/18/22 23:54 48 L 100 06/18/22 23:53 65 87 L 06/18/22 23:49 96 H 100 06/18/22 23:44 99 H 99 Coding Level of Care Code None Diagnoses Insulin controlled gestational diabetes mellitus (GDM) during O24.414 Elective induction of labor planned
[2022-06-19] MEDS ORDERED: ACETAMINOPHEN 325 MG TAB PO PRN (14:42)
[2022-06-19] MEDS ORDERED: HYDROCORTISONE ACETATE 25 MG SUPP PR PRN (14:42)
[2022-06-19] MEDS ORDERED: bisacodyL 10 MG SUPP PR PRN (14:42)
[2022-06-19] MEDS ORDERED: BENZOCAINE 20% AER SPR 82.5 GM CAN EXT PRN (14:42)
[2022-06-19] MEDS ORDERED: DIPHTHERIA/TETANUS/PERTUSSIS 0.5mL SYR/VIAL (Age 7+yrs) IM ONE (14:42)
[2022-06-19] MEDS ORDERED: OXYTOCIN 30 UNITS/500 ML BAG IV PRN (14:42)
[2022-06-19 14:44] LABS: Basophils # (auto) 0.03 K/uL (0-0.2); Basophils % (auto) 0.2 %; Eosinophils # (auto) 0.01 K/uL (0-0.50); Eosinophils % (auto) 0.1 %; Hematocrit (blood only) 29.1 % (34.1-44.9); Hemoglobin 9.8 g/dl (12.0-16.0); Immature Granulocytes # (auto) 0.08 K/uL (0.00-0.02); Immature Granulocytes % (auto) 0.5 %; Lymphocytes # (auto) 0.95 K/uL (1.2-3.4); Lymphocytes % (auto) 5.9 %; Mean Corpuscular Hemoglobin 31.1 pg (25.0-34.0); Mean Corpuscular Hgb Conc 33.7 g/dL (32.0-36.0); Mean Corpuscular Volume 92.4 fL (80.0-100.0); Mean Platelet Volume 10.6 fL (9.4-12.3); Monocytes # (auto) 1.32 K/uL (0.24-0.82); Monocytes % (auto) 8.1 %; Neutrophils # (auto) 13.82 K/uL (1.4-6.5); Neutrophils % (auto) 85.2 %; Platelet Count 197 K/uL (130-400); RDW Coefficient of Variation 13.3 % (11.5-14.5); RDW Standard Deviation 44.8 fL (36.4-46.3); Red Blood Count 3.15 M/uL (3.93-5.22); White Blood Count 16.21 K/ul (4.8-10.8)
[2022-06-19] MEDS ORDERED: LACTATED RINGER'S 1,000 ML IV SCH (14:45)
[2022-06-19 14:57] LABS: Fibrinogen 326 mg/dl (184-400); INR 0.9 (0.9-1.1); Partial Thromboplastin Time 26.2 Seconds (21.0-31.0)
--- NOTE | 2022-06-19 15:16 | Delivery Summary ---
Vaginal Delivery Summary Date of Service June 19, 2022 Vaginal Delivery Summary (vaginal tear repairs) PREOPERATIVE DIAGNOSIS: 1. Single intrauterine at 39 2/7 wga 2. A2GDM 3. AMA 4. Bahai POSTOPERATIVE DIAGNOSIS: 1. Single intrauterine at 39 2/7 wga 2. A2GDM 3. AMA 4. Bahai 5. Delivered PROCEDURE: 1. Normal spontaneous vaginal delivery. SURGEON: Cheyenne Grey MD ANESTHESIA: Epidural. ESTIMATED BLOOD LOSS: 700 mL (primarily from tears) FLUIDS: Continuous LR. URINE OUTPUT: None. COMPLICATIONS: None. CONDITION: Stable. INDICATIONS: 41 yo at 39 2/7 wga presented for induction due to A2GDM and AMA. Induction was begun with campbell bulb but pitocin could not be started due to high census. Pitocin was started yesterday evening but stopped around midnight due to bleeding. Bleeding did resolve and so pitocin was started again this AM and underwent AROM. She continued to progress to complete and desired to push. FINDINGS: A viable male infant, weight pending with Apgars of 7 and 9 at 1 and 5 minutes respectively. SPECIMEN: Cord blood OPERATIVE REPORT: The patient progressed to 10 cm, 100% effaced and +2 station, pushed over intact perineum with anesthesia to deliver a viable male , weight and Apgars as above. Head of delivered in FRANCIE position. Tight nuchal cord was present and and delivered through. Body and shoulders were delivered without difficulty. was delivered to maternal abdomen and nursing staff. Delayed cord clamping was performed for 60 seconds. Cord was clamped and cut. Cord blood was obtained. Placenta delivered spontaneously intact with 3-vessel cord. IV oxytocin and fundal massage were given for excellent hemostasis. Vagina, cervix, perineum, and placenta were inspected. Extensive vaginal lacerations extending into the right and left vaginal almeida we re noted and repaired using multiple 3-0 and 4-0 vicryls. Due to extent of bleeding, provider from office was requested to come over and did assist in obtaining hemostasis using additional 3-0 chromic stitches. There was excellent hemostasis. Sponge and needle counts correct x2. No sponges were left behind. Mother and stable in immediate period. [facility] [place] Delivery Charge Vaginal Delivery Codes: 39738 global code for the antepartum, delivery, and post- Delivery Type Details: (vaginal tear repairs)
--- NOTE | 2022-06-19 17:18 | Anesthesia Procedure Note ---
Date of Service June 19, 2022 Anesthesia Post Epidural Note Vital Signs Vital Signs: Temp Pulse Resp BP Pulse Ox 36.8 C 133 H 16 110/63 100 06/19/22 12:34 06/19/22 16:05 06/19/22 15:18 06/19/22 16:05 06/19/22 14:40 Pain Intensity Abdomen: Pain Intensity: 0 Notes Mental Status: alert / awake / arousable and participated in evaluation Patient Amnestic to Procedure: No Nausea / Vomiting: adequately controlled Pain: adequately controlled Airway Patency, RR, SpO2: stable & adequate BP & HR: stable & adequate Hydration State: stable & adequate Neuraxial Anesthesia: was administered and sensory block is resolving Anesthetic Complications: no major complications apparent and Pt Satisfied with anesthetic care Epidural: Removed without complications and With tip intact
[2022-06-19] MEDS: IBUPROFEN 600 MG TAB PO PRN (17:19)
[2022-06-19] MEDS: DOCUSATE SODIUM 100 MG CAP PO SCH (20:39)
[2022-06-20] MEDS: IBUPROFEN 600 MG TAB PO PRN ×5 (00:07→23:11)
--- NOTE | 2022-06-20 06:04 | Obstetrical Progress Note ---
Date of Service <Nya Chavira MD - Last Filed: 06/20/22 07:35> June 20, 2022 Assessment & Plan <Nya Chavira MD - Last Filed: 06/20/22 07:35> (1) Elective induction of labor planned: 41 y/o [id number] female at 39+ here for IOL now PPD1. Patient had significant tearing requiring extensive suturing. Monitoring H&H - 7.3 this AM. Patient required packing 2/2 bleeding overnight. Satisfactory post- progress. Tolerating PO. Encourage ambulation. GBS neg, RI, Rh pos. c/b 1. AMA 2. GDM on insulin 3. Low lying placenta --> resolved Swati Dasilva MS3 contributed to the history and physical of this note. <Cheyenne Grey MD - Last Filed: 06/20/22 08:14> (1) Elective induction of labor planned: Subjective <Nya Chavira MD - Last Filed: 06/20/22 07:35> Ambulation: ambulating normally Voiding: no voiding problems Passing Gas:: Yes Diet Tolerance:: regular diet Lochia:: Moderate Feeding Type:: breast feeding Review of Systems no f/c/SOB/CP/n/v Physical Exam <Nya Chavira MD - Last Filed: 06/20/22 07:35> Constitutional WD/WN, vitals as above Respiratory normal respiratory effort, lungs clear to auscultation no increased work of breathing Cardiovascular RRR, no murmur, no edema clinically well perfused, symmetric non pitting edema, no calf tenderness Psychiatric A+Ox3, euthymic affect Results & Data ([facility]) <Nya Chavira MD - Last Filed: 06/20/22 07:35> Vital Signs (Past 12 Hours) Vital Signs Temp Pulse Resp BP Pulse Ox O2 Del Method 06/20/22 03:55 36.8 C 94 H 18 112/76 97 Room Air 06/19/22 23:55 36.9 C 91 H 18 120/78 100 Room Air 06/19/22 19:55 Room Air 06/19/22 19:55 36.9 C 126 H 18 116/76 96 Room Air <Cheyenne Grey MD - Last Filed: 06/20/22 08:14> Co-Signing Physician Notes Resident Physician Supervision Note: I interviewed and examined the patient. Discussed with Dr. Chavira and agree with findings and plan as documented in the note. Any exceptions or clarifications are listed here: PP1 s/p c/b extensive vaginal tearing, doing well. VSS, exam benign and wnl. Pt was confused and thought packing was placed after delivery but it was not. H/H 7.3, iron started. Continue routine pp care Documented By: Cheyenne Grey MD Resident Activity Tracking <Nya Chavira MD - Last Filed: 06/20/22 07:35> Resident Involvement: Resident Care Provided Care Provided: OB Delivery
[2022-06-20 06:50] LABS: Hematocrit (blood only) 22.1 % (34.1-44.9); Hemoglobin 7.3 g/dl (12.0-16.0); Mean Corpuscular Hemoglobin 30.7 pg (25.0-34.0); Mean Corpuscular Volume 92.9 fL (80.0-100.0); Mean Platelet Volume 10.7 fL (9.4-12.3); Platelet Count 191 K/uL (130-400); RDW Coefficient of Variation 13.6 % (11.5-14.5); RDW Standard Deviation 45.9 fL (36.4-46.3); Red Blood Count 2.38 M/uL (3.93-5.22); White Blood Count 18.08 K/ul (4.8-10.8)
[2022-06-20] MEDS ORDERED: FERROUS SULFATE 325 MG TAB PO SCH (08:00)
[2022-06-20] MEDS: FERROUS SULFATE 325 MG TAB PO SCH ×2 (09:36→21:47)
[2022-06-20] MEDS: PRENATAL VITAMIN 1 TAB PO SCH (09:36)
[2022-06-20] MEDS: DOCUSATE SODIUM 100 MG CAP PO SCH ×2 (09:36→21:47)
[2022-06-20] MEDS ORDERED: bisacodyL 5 MG TABEC PO SCH (20:00)
[2022-06-21] MEDS: IBUPROFEN 600 MG TAB PO PRN ×2 (03:23→09:01)
[2022-06-21 06:46] LABS: Hematocrit (blood only) 18.4 % (34.1-44.9)
--- NOTE | 2022-06-21 07:14 | Obstetrical Progress Note ---
Date of Service <Nya Chavira MD - Last Filed: 06/21/22 08:39> June 21, 2022 Assessment & Plan <Nya Chavira MD - Last Filed: 06/21/22 08:39> (1) Elective induction of labor planned: 41 y/o [id number] female at 39+ here for IOL now PPD2. Patient had significant tearing requiring extensive suturing. Monitoring H&H - down to 6 this AM. Patient was confused about if packing had been placed or not - there is nothing in the vagina. Satisfactory post- progress. Tolerating PO. Encourage ambulation. GBS neg, RI, Rh pos. 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 c/b 1. AMA 2. GDM on insulin 3. Low lying placenta --> resolved Swati Dasilva MS3 contributed to the history and physical of this note. (2) care following vaginal delivery: (3) Symptomatic anemia: Acute issue. Patient likely iron deficient in the setting of acute blood loss 2/2 vaginal delivery. H&H downtrending - hemoglobin 6 today. Symptomatic with dizziness/lightheadedness. Would benefit from IV iron. Infusion x1 today. May consider outpatient heme f/u for additional doses of IV Iron. <Tamar Sharp MD, FACOG - Last Filed: 06/21/22 09:16> (1) Elective induction of labor planned: (2) care following vaginal delivery: (3) Symptomatic anemia: Subjective <Nya Chavira MD - Last Filed: 06/21/22 08:39> Ambulation: ambulating normally Voiding: no voiding problems Passing Gas:: Yes Diet Tolerance:: regular diet Lochia:: Small Feeding Type:: breast feeding patient symptomatic - dizziness, lightheadedness Physical Exam <Nya Chavira MD - Last Filed: 06/21/22 08:39> Constitutional WD/WN, vitals as above Respiratory normal respiratory effort, lungs clear to auscultation Cardiovascular RRR, no murmur, no edema Extremities: no calf tenderness Psychiatric A+Ox3, euthymic affect Genitourinary OB Exam Abdomen: + fundal height (@ the level of the umbilicus) Fundus: + firm Results & Data ([facility]) <Nya Chavira MD - Last Filed: 06/21/22 08:39> Vital Signs (Past 12 Hours) Vital Signs Temp Pulse Resp BP Pulse Ox O2 Del Method 06/20/22 23:01 36.9 C 97 H 18 108/77 98 Room Air 06/20/22 19:21 37.1 C 98 H 18 103/72 97 Room Air Laboratory Results 06/21/22 Range/Units 06:09 Hgb 6.0 L* (12.0-16.0) g/dl Hct 18.4 L* (34.1-44.9) % <Tamar Sharp MD, FACOG - Last Filed: 06/21/22 09:16> Co-Signing Physician Notes Resident Physician Supervision Note: I interviewed and examined the patient. Discussed with Dr. Chavira and agree with findings and plan as documented in the note. Any exceptions or clarifications are listed here: Because she is symptomatic with Hgb of 6.0, I recommended that she receive blood transfusion but she declines for alevism reasons. she is agreeable to IV iron infusion today. we will try to set up future IV iron infusions for the coming week as an outpatient. patient is aware of the plan. Documented By: Tamar Sharp MD, FACOG Resident Activity Tracking <Nya Chavira MD - Last Filed: 06/21/22 08:39> Resident Involvement: Resident Care Provided Care Provided: OB Delivery
[2022-06-21] MEDS: PRENATAL VITAMIN 1 TAB PO SCH (08:52)
[2022-06-21] MEDS: FERROUS SULFATE 325 MG TAB PO SCH (08:52)
[2022-06-21] MEDS: DOCUSATE SODIUM 100 MG CAP PO SCH (08:52)
[2022-06-21] MEDS ORDERED: IRON SUCROSE 300 MG in SODIUM CHLORIDE 0.9% 250 ML IV ONE (09:00)
== END 2022-06-21 14:39 | disposition home or self-care (01) | DRG 768 ==
LOC: 4S1 07:42 → 4E2 06-19 18:10